=== PATIENT | female | born 2000 | race Two or more races ===

== ENCOUNTER 2024-02-22 19:44 | Emergency (ER) | payer MEDICAID, SELFPAY ==
[2024-02-22 19:45] VITALS: BMI 28.3
[2024-02-22 20:11] VITALS: BP 110/86; PULSE 86; RESP 18; TEMP 36.9; O2SAT 99
--- NOTE | 2024-02-22 20:32 | PD.EDWOUND ---
ED Wound/Laceration-RME/HPI General Chief Complaint: Wound/Laceration Stated Complaint: RIGHT HAND LACERATION Time Seen by Provider: 02/22/24 20:10 Source: patient Arrival date/time: 02/22/24 19:44 23-year-old female presents emergency department complaining of laceration to right hand which occurred while she reached into the kitchen sink and thinks he might of cut herself with a knife or other kitchen utensil. Patient reports is up-to-date with tetanus vaccine. Mode of arrival: ambulatory Limitations: no limitations Related Data Home Medications ?Medication ?Instructions ?Recorded ?Confirmed prenat.vits,julian,[id number] 1 tab PO QDAY 03/07/23 06/19/23 ferrous sulfate 325 mg (65 mg 325 mg PO DAILY 06/19/23 06/19/23 iron) tablet Allergies Allergy/AdvReac Type Severity Reaction Status Date / Time No Known Allergies Allergy Verified 02/22/24 19:45 Review of Systems Review of Systems Systems Reviewed: All systems reviewed, normal except as documented Constitutional Constitutional: Reports system reviewed and no additional complaints, except as documented, Denies body ache(s), Denies chills and Denies fever(s) Eyes Eyes: Reports system reviewed and no additional complaints, except as documented and Denies change in vision ENT Ears, Nose, Mouth, and Throat: Reports system reviewed and no additional complaints, except as documented, Denies disequilibrium, Denies dizziness, Denies sore throat and Denies vertigo Cardiovascular Cardiovascular: Reports system reviewed and no additional complaints, except as documented, Denies chest pain and Denies dyspnea Respiratory Respiratory: Reports system reviewed and no additional complaints, except as documented, Denies chest congestion, Denies cough and Denies dyspnea Gastrointestinal Gastrointestinal: Reports system reviewed and no additional complaints, except as documented, Denies abdominal pain, Denies nausea and Denies vomiting Musculoskeletal Musculoskeletal: Reports system reviewed and no additional complaints, except as documented, Denies abnormal gait and Denies arthralgias Integumentary/Breasts Skin/Breast: Reports system reviewed and no additional complaints, except as documented, Denies erythema, Denies rash and Reports wounds Neurologic Neurologic: Reports system reviewed and no additional complaints, except as documented, Denies abnormal gait, Denies disequilibrium, Denies dizziness and Denies vertigo Past Medical History Past Medical History NEUROLOGIC: Negative Neurological Disorders CARDIAC: Negative Cardiac Disorders or Congestive Heart Failure RESPIRATORY: Negative Chronic Obstructive Pulmonary Disease (COPD) or Asthma GASTROINTESTINAL: Positive Gall Bladder Disease (self 2021); Negative Gastrointestinal Disorders GENITOURINARY: Negative Genitourinary Disorders or Renal Disease REPRODUCTIVE: Negative Pelvic Inflammatory Disease MUSCULOSKELETAL: Negative Musculoskeletal Disorders ENDOCRINE: Negative Endocrine Disorders, Diabetes Mellitus Type 1 or Diabetes Mellitus Type 2 HEMATOLOGIC: Negative Blood Disorders or Sickle Cell Disease PSYCHO/SOCIAL: Positive Anxiety OTHER HISTORY: Negative Autoimmune Disease, Anesthesia Reactions, Organ Transplant, MRSA, Clostridium Difficile or Cancer Family History FAMILY HISTORY: Negative Family Psychiatric Problems, Family Respiratory Disorders, Family Cardiac Disorders, Family Gastrointestinal Problems, Family Cancer, Family Surgery or Family Anesthesia Reaction Surgical History SURGICAL: Negative Cardiac Surgery, Endocrine Surgery, Ear Surgery, Abdominal Surgery, Nephrectomy, Joint Replacement, Neurologic Surgery, Mastectomy, Lumpectomy, Hysterectomy, Tubal Ligation, Section or Organ Transplant Social History SMOKING STATUS: Current some day smoker SUBSTANCE USE: does not use ED Exam General Limitations: Present no limitations General appearance: Present alert and in no apparent distress Head Head exam: Present atraumatic Eye Eye exam: Present normal appearance, PERRL and EOMI ENT ENT exam: Present normal exam, normal oropharynx and mucous membranes moist Neck Neck exam: Present normal inspection, full ROM and trachea midline Chest Chest inspection: Present normal inspection and symmetric chest wall rise Respiratory Respiratory exam: Present normal lung sounds bilaterally Cardiovascular Cardiovascular exam: Present regular rate, normal rhythm and normal heart sounds Abdominal Exam Abdominal exam: Present soft and normal bowel sounds Extremities Exam Extremities exam: Present normal inspection and full ROM Expanded Upper Extremity Exam Hand L/R front image: 1. laceration (Approximately 3 cm laceration) Vascular exam: Normal capillary refill Back Exam Back exam: Present normal inspection and full ROM Neurological Exam Neurological exam: Present alert, oriented X3 and CN II-XII intact Psychiatric Psychiatric exam: Present normal affect and normal mood Skin Skin exam: Present warm, dry, intact and normal color Course Quality Measures none Orders Category Date Time Status Set Up Suture Tray STAT Care 02/22/24 20:32 Completed Wound Care [Wound Care] NOW Care 02/22/24 20:32 Completed Lidocaine 1% 20 ml [Xylocaine 1% 20 ML] Med 02/22/24 20:32 Discontinued 20 ml INFL X1 ONE Vital Signs Vital signs: Vital Signs Temperature 98.4 F 02/22/24 20:11 Pulse Rate 86 02/22/24 20:11 Respiratory Rate 18 02/22/24 20:11 Blood Pressure 110/86 H 02/22/24 20:11 Pulse Oximetry (%) 99 02/22/24 20:11 Oxygen Delivery Method Room Air 02/22/24 20:11 99% room air within normal limits Procedures -ED Laceration Laceration 1: Site: hand Side (If applicable): right Size (cm): 3 Description: linear Depth: simple, single layer Local Anesthetic: lidocaine 1% Amount of anesthesia used (mL): 1 Pre-repair: wound explored and irrigated extensively Skin layer closed with: other (prolene) Size (cm): 4-0 Number of sutures: 5 Technique: simple, interrupted Wound / Laceration MDM Narrative MDM Narrative:: 23-year-old female presents emergency department complaining of laceration to right hand which occurred while she reached into the kitchen sink and thinks he might of cut herself with a knife or other kitchen utensil. Patient reports is up-to-date with tetanus vaccine. Laceration to right hand approximately 3 cm irrigated with copious amounts of normal saline. 1 mL of 1% lidocaine was used as local anesthetic. 5 simple interrupted sutures were used to approximate wound using 5-0 Prolene. Patient tolerated well. Laceration did not involve any tendon. Affected hand neurovascularly intact with full active range of motion. Patient data External records reviewed:: [facility] previous records Clinical information provided by:: patient Social determinants that could affect healthcare access:: none Patient has the following chronic illnesses:: See chart How is presenting disease/condition affected by chronic disease/condition?: uneffected by Evaluation data The following diagnostics were reviewed and interpreted by me:: other (specify) (None) Lab and/or radiology exams considered but not ordered:: N/A Interpretation Summary: N/A Medications / Prescriptions Medications or Prescriptions considered but not ordered:: Ordered Medication administrations:: Medication Administration History Discontinued Medications Lidocaine HCl (Lidocaine Hcl 1% 20 Ml Vial) 20 ml INFL X1 ONE Stop: 02/22/24 20:33 Given Consultations Consultation(s) initiated? (list below): No Diagnosis Wound Differential Diagnosis: laceration Most likely diagnosis given after review of the tests above:: Laceration of hand Admission Indicated Admission indicated?: not indicated Admission Request Was there a request for admission?: No Disposition Plan Disposition Plan: Discharge Discharge Attestation Discharge Attestation: The patient and all family members were given an opportunity to ask questions and understood the discharge instructions. Discharge instructions specifically effects, indications for sooner follow up or return to the emergency department, and the expected course of current diagnosis. Patient condition: Stable Discharge Plan Plan Patient Disposition: HOME (Self Care) Disposition Comment: Stable Prescriptions/Referrals Prescriptions/Med Rec: No Action Vitamin Tablet 1 tab PO QDAY ferrous sulfate 325 mg (65 mg iron) Tablet 325 mg PO DAILY Referrals: No Primary/Family,Physician [Referring Provider] - In 1 week Problem List Clinical Impression: Laceration of hand Patient/Caregiver Discharge Instructions Discharge Activity: activity as tolerated Education Materials: ED Laceration: All Closures Additional Instructions: Apply dressing to wound for the first 24 hours while bleeding. May wash with some water and soap. After 24 hours and there is no longer any bleeding keep open to air clean and dry. Return to emergency department or primary care provider's office in 7 to 10 days for suture removal. Return immediately to emergency department for any signs of infection or worsening symptoms. Print Language: Nepali Stand Alone Forms: [employer] Award Info., Patient Portal Info Letter PA/BALDOMERO Supervising Physician PA/TRAINING AND DEVELOPMENT MANAGER Supervising Physician: Dr. Frausto
== END 2024-02-22 22:12 | disposition home or self-care (01) ==
PROVIDERS: Emergency Provider Emergency Medicine; PCP Family Medicine
DX: S61.411A Laceration without foreign body of right hand, initial encounter (principal); W45.8XXA Other foreign body or object entering through skin, initial encounter; F17.200 Nicotine dependence, unspecified, uncomplicated
CPT/HCPCS: 12002; 99283

== ENCOUNTER 2024-11-05 21:27 | Emergency (ER) | payer MEDICAID, SELFPAY ==
[2024-11-05 21:39] VITALS: BMI 26.5
[2024-11-05 21:40] VITALS: BP 98/66; PULSE 112; RESP 19; TEMP 36.6; O2SAT 96; BMI 26.5
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
== END 2024-11-05 22:53 | disposition home or self-care (01) ==
LOC: SERX 22:46
PROVIDERS: Emergency Provider Emergency Medicine; PCP Family Medicine
DX: Z02.89 Encounter for other administrative examinations (principal); F10.929 Alcohol use, unspecified with intoxication, unspecified; T14.8XXA Other injury of unspecified body region, initial encounter; V89.2XXA Person injured in unspecified motor-vehicle accident, traffic, initial encounter
CPT/HCPCS: 99281